=== PATIENT | female | born 1985 | race Two or more races ===

== ENCOUNTER 2024-07-24 15:24 | Emergency (ER) | payer OTHER ==
[~2024-07-24] VITALS: Ht 162.6 cm; Wt 87.5 kg
[2024-07-24] MEDS ORDERED: DIETHYLPROPION75 MG PO (16:38)
[2024-07-24] MEDS ORDERED: SYNTHROID75 MCG PO (16:40)
[2024-07-24] MEDS ORDERED: SINGULAIR4 M1 PO (16:40)
[2024-07-24] MEDS ORDERED: CELEBREX200MG PO (21:19)
[2024-07-24] MEDS ORDERED: METAXALONE800 MG PO (21:19)
== END 2024-07-24 21:21 | disposition home or self-care (01) ==
LOC: ER 15:26
DX: S80.01XA Contusion of right knee, initial encounter (principal); W10.8XXA Fall (on) (from) other stairs and steps, initial encounter; Y93.89 Activity, other specified; Y92.89 Other specified places as the place of occurrence of the external cause; Y99.8 Other external cause status; E03.8 Other specified hypothyroidism; Z91.013 Allergy to seafood